=== PATIENT | male | born 1980 | race Caucasian/White ===

== ENCOUNTER 2017-07-24 18:36 | Emergency (ER) | payer OTHER ==
[2017-07-24] MEDS ORDERED: IBUPROFEN 400 MG TABLET (FP) PO ONE (18:47)
--- NOTE | 2017-07-24 18:47 | PDOC ---
Rapid Medical Evaluation Time Seen by Provider: 07/24/17 18:40 Medical Evaluation: 07/24/17 18:40 I have performed a brief in-person evaluation of this patient. 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 No sig pmhx Pertinent physical exam findings:Unremarkable I have ordered the following: xray, motrin The patient will proceed to the ED for further evaluation.
[2017-07-24 18:49] VITALS: BP 130/89; PULSE 100; TEMP 99.1; BMI 36.2
--- NOTE | 2017-07-24 19:13 | PDOC ---
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 Patient climbed up 1 step to look at the water well when he slipped on the ice from the step causing him to twist her his right knee. Patient managed to climb down from the fire truck but twisted his right knee again falling onto his right side. Patient denies any head injuries, neck/back pains, chest pain, abdominal pains, extremity numbness or tingling sensation. Patient states he's ambulating with a slight limp. Patient had a previous right patellar tendon injury and is being treated by an orthopedic surgeon from [facility]/ Dr. Be Ojead. Timing/Duration: 1 hour Past History - Past Medical History Allergies/Adverse Reactions: Allergies Allergy/AdvReac Type Severity Reaction Status Date / Time No Known Allergies Allergy Verified 07/24/17 18:45 Home Medications: Ambulatory Orders NK [No Known Home Medication] 07/24/17 COPD: No - Suicide/Smoking/Psychosocial Hx Smoking History: Never smoked Have you smoked in the past 12 months: No Information on smoking cessation initiated: No Hx Alcohol Use: No Drug/Substance Use Hx: No Substance Use Type: None Review of Systems - Review of Systems Able to Perform ROS?: Yes Comments:: 07/24/17 19:10 CONSTITUTIONAL: Absent: fever, chills, diaphoresis, generalized weakness, malaise, loss of appetite SKIN: Absent: rash, itching, pallor HEMATOLOGIC/IMMUNOLOGIC: Absent: easy bleeding, easy bruising, lymphadenopathy, frequent infections ENDOCRINE: Absent: unexplained weight gain, unexplained weight loss, heat intolerance, cold intolerance Right knee pain Neg ext numbness/tingling sensation Is the patient limited Greenlandic proficient: No *Physical Exam - Vital Signs Last Vital Signs Temp Pulse Resp BP Pulse Ox 99.1 F 100 H 18 130/89 100 07/24/17 18:46 07/24/17 18:46 07/24/17 18:46 07/24/17 18:46 07/24/17 18:46 - Physical Exam Comments: 07/24/17 19:10 GENERAL: Well developed, well nourished. Awake and alert. No acute distress. MUSCULOSKELETAL Normal range of motion at all joints. No bony deformities or tenderness. No CVA tenderness. EXTREMITIES: No cyanosis. No clubbing. No edema. No calf tenderness. SKIN: Warm and dry. Normal capillary refill. No rashes. No jaundice. Right knee F.R.O.M> neg valrus/valgus neg ant/posterior drawer Neg pain on palp Slight swelling Right hip F.R>O.M. neg pain on palp Right ankle 2+dp pulse F.R.O.M. Neg pain on palp Neg obv def ED Treatment Course - RADIOLOGY Radiograph Interpretation: 07/24/17 19:13 XRay Right knee 2v Neg fx/dislocations - Medications Given in the ED: ED Medications Discontinued Medications Generic Name Dose Route Start Last Admin Trade Name Freq PRN Reason Stop Dose Admin Ibuprofen 800 mg 07/24/17 18:47 07/24/17 18:52 Motrin - PO 07/24/17 18:48 800 mg ONCE ONE Administration Medical Decision Making - Medical Decision Making 07/24/17 19:08 36-year-old male without any medical history presents to the emergency department complaining of right knee pain after he slipped off a step of his fire truck causing him to twist and fall onto his lateral knee. Patient is able to ambulate with a slight limp. Knee x-ray does not show any obvious fracture or dislocation. Patient has a previous right knee injury and is being treated by Dr. Be Ojeda of [facility]/orthopedics. *DC/Admit/Observation/Transfer Diagnosis at time of Disposition: Right knee sprain Qualifiers: Encounter type: initial encounter Involved ligament of knee: other ligament Qualified Code(s): S83.8X1A - Sprain of other specified parts of right knee, initial encounter - Discharge Dispostion Disposition: HOME Condition at time of disposition: Stable Admit: No - Referrals Referrals: Be Ojeda [Non Staff, Medical] - - Patient Instructions Printed Discharge Instructions: DI for Knee Sprain Additional Instructions: Ice; 20 mins on alternating with 20 mins off for 48 hours while awake. Rest Elevate Follow up with your orthopedic surgeon or the one listed on the discharge form. Return to the ER for severe/persistent/worsening symptoms, extremity numbness/ tingling sensation. - Post Discharge Activity Forms/Work/School Notes: Back to Work
== END 2017-07-24 19:30 | disposition home or self-care (01) ==
LOC: JERFT 18:36
DX: S83.8X1A Sprain of other specified parts of right knee, initial encounter (principal); W00.1XXA Fall from stairs and steps due to ice and snow, initial encounter; V86.41XA Person injured while boarding or alighting from ambulance or fire engine, initial encounter; Y93.89 Activity, other specified; Y92.29 Other specified public building as the place of occurrence of the external cause; Y99.0 Civilian activity done for income or pay
CPT/HCPCS: 73560-TC-RT; 99281-25

== ENCOUNTER 2020-05-25 16:45 | Emergency (ER) | payer OTHER ==
[2020-05-25 16:53] VITALS: BP 123/71; PULSE 85; TEMP 98.4; BMI 34.8
--- OUTSIDE RECORDS SUMMARY | 2020-05-25 16:56 | XMS ---
:1980 Author Organization [facility] Care Team Providers Name Role Phone Austen Garza Unavailable Unavailable Kari GRINDER SET UP OPERATOR THREAD TOOLOdalys Marquez Unavailable Unavailable Tran, I MD Unavailable Unavailable Tran, I MD Unavailable Unavailable Tran, I MD Unavailable Unavailable Tran, I MD Unavailable Unavailable Tran, I MD Unavailable Unavailable Tran, I MD Unavailable Unavailable Tran, I MD Unavailable Unavailable Tran, I MD Unavailable Unavailable Tran, I MD Unavailable Unavailable Tran, I MD Unavailable Unavailable Tran, I MD Unavailable Unavailable Tran, I MD Unavailable Unavailable Tran, I MD Unavailable Unavailable Tran, I MD Unavailable Unavailable Tran, I MD Unavailable Unavailable Tran, I MD Unavailable Unavailable Sruthi, L Unavailable Unavailable Brodoff Unavailable Unavailable Flam, C Unavailable Unavailable Re-disclosure Warning The records that you are about to access may contain information from federally- assisted alcohol or drug abuse programs. If such information is present, then the following federally mandated warning applies: This information has been disclosed to you from records protected by federal confidentiality rules (42 CFR part 2). The federal rules prohibit you from making any further disclosure of this information unless further disclosure is expressly permitted by the written consent of the person to whom it pertains or as otherwise permitted by 42 CFR part 2. A general authorization for the release of medical or other information is NOT sufficient for this purpose. The Federal rules restrict any use of the information to criminally investigate or prosecute any alcohol or drug abuse patient.The records that you are about to access may contain highly sensitive health information, the redisclosure of which is protected by Article 27-F of the [place] State Public Health law. If you continue you may haveaccess to information: Regarding HIV / AIDS; Provided by facilities licensed or operated by the [facility] Office of Mental Health; or Provided by the [facility] Office for People With Developmental Disabilities. If such information is present, then the following [facility] mandated warning applies: This information has been disclosed to you from confidential records which are protected by state law. State law prohibits you from making any further disclosure of this information without the specific written consent of the person to whom it pertains, or as otherwise permitted by law. Any unauthorized further disclosure in violation of state law may result in a fine or usp sentence or both. A general authorization for the release of medical or other information is NOT sufficient authorization for further disclosure. Allergies and Adverse Reactions Type Description Substance Reaction Status Data Source(s ) 3 NO KNOWN ALLERGIES Clindamycin 150 MG NEXTGEN Oral Tablet ([facility] [Clintabs] [facility]) Drug allergy No Known Medication No Known Medication [facility] - Allergies Allergies [facility] Encounters Encounter Providers Location Date Indications Data Source(s ) Outpatient Attender: Kristofer 04/06/2020 NEXTGEN ( [facility] Tran MD 01:42:00 PM [facility]) Outpatient Attender: Felipe 04/02/2020 NEXTGEN ( [facility] FlamReferrer: Felipe 11:10:00 AM [facility]) Outpatient Attender: Felipe 03/08/2020 NEXTGEN ( [facility] FlamReferrer: Felipe 07:34:00 AM [facility]) Outpatient Attender: Felipe De Leon 01/19/2020 NEXT GEN ([facility] 11:02:00 AM [facility]) Outpatient Attender: Felipe De Leon 01/06/2020 NEXT GEN ([facility] 08:35:00 AM [facility]) Outpatient Attender: Felipe De Leon 01/05/2020 NEXT GEN ([facility] 10:15:00 AM [facility]) Outpatient Attender: Felipe De Leon 11/18/2019 NEXT GEN ([facility] 07:53:00 AM [facility] [place] [facility] Outpatient Attender: Felipe De Leon 10/22/2019 NEXT GEN ([facility] 11:44:00 AM [facility] [place] [facility] Outpatient Attender: Felipe 10/13/2019 NEXTGEN ( [facility] FlamReferrer: Felipe 11:00:00 AM [facility] [place] [facility]) Outpatient Attender: Kristofer 09/23/2019 NEXTGEN ( Ady Tran MD 02:20:00 PM [facility] [place] [facility]) Outpatient Attender: Nick 09/20/2019 NEXTGEN ([facility] Saulo 11:10:00 AM [facility] [place] [facility]) Outpatient Attender: Nick 09/20/2019 NEXTGEN ([facility] DeonnaffReferrer: 12:00:00 AM [facility] [place] [facility]er Tran [facility]) Outpatient Attender: Kristofer 09/11/2019 NEXTGEN ( [facility] Marc MDReferrer: 11:30:00 AM [facility]ica [facility] [place] [facility]er Tran [facility]) Outpatient Attender: Austen 09/05/2019 KIRKGEN ([facility] PapellReferrer: 12:00:00 AM [facility] [place] [facility] Outpatient Attender: Felipe De Leon 08/27/2019 NEXT GEN ([facility] 12:06:00 PM [facility] [place] [facility]) Outpatient Attender: Kristofer 07/30/2019 KIRKGEN ( Ady Tran MD 09:40:00 AM [facility] [place] [facility]) Outpatient Attender: Felipe De Leon 07/22/2019 NEXT GEN ([facility] 11:37:00 AM [facility] [place] [facility]) Outpatient Attender: Felipe 07/18/2019 NEXTGEN ( [facility] FlamReferrer: Felipe 08:30:00 AM [facility] [place] [facility]) Outpatient Attender: Kristofer 07/15/2019 NEXTGEN ( [facility] Marc MDReferrer: 10:00:00 AM [facility] [place] [facility]er Tran MD [facility]) Outpatient Attender: Maria Esther 06/24/2019 [facility] 12:56:52 PM Tiffanieernie Bolanos FNPAdmitter: Maria Esther BERG - [facility] 06/24/2019 11:59:00 PM EST Patient discharged. Outpatient Attender: Kristofer Tran 06/24/2019 12:00:00 AM NEXTGEN ([facility] EST [facility] ) Outpatient Attender: Felipe De Leon 06/24/2019 12:00:00 AM NEXTGEN ([facility] EST [facility] Outpatient Attender: Felipe De Leon 06/24/2019 12:00:00 AM NEXTGEN ([facility] EST [facility]) Outpatient Attender: Felipe 06/06/2019 03:27:00 PM NEXTGEN ([facility] FlamAttender: Jessica BERG M edical - [facility] ) Outpatient Attender: Felipe 06/04/2019 01:30:00 PM NEXTGEN ([facility] FlsukumarReferrer: Felipe BERG Medic al - [facility] ) Outpatient Attender: Felipe De Leon 04/30/2019 10:10:00 AM NEXTGEN ([facility] EDT [facility] ) Medications Medication Brand Start Product Dose Route Administrative Pharmacy [facility] Indications Reaction Description Data Name Date Form Instructions Instructions Source(s) rivaroxaban XARELT TAKE 1 TABLET RP NEXTGEN 20 MG Oral O 2020 BY MOUTH EVERY ([facility] Tablet 12:00: DAY EVENING Medi vincenzo - [Xarelto] 00 AM MEAL [place] 20 mg 20 mg [facility] ) This may be an active medication. No end date is available. Metoprolol METOPROLOL 03/08/2020 take 1 RP NEXTGEN Tartrate 50 MG TARTRATE 12:00:00 AM tablet by ([facility] Oral Tablet 50 EDT oral route Medical - [place] mg 50 mg 3 times [place] [facility] every [facility]) with meals This may be an active medication. No end date is available. atorvastatin 40 ATORVASTATIN 01/19/2020 take 1 RP NEXTGEN MG Oral Tablet CALCIUM 12:00:00 AM tablet by ([facility] 40 mg 40 mg EDT oral route Me dical - [place] every day [place] [facility]) This may be an active medication. No end date is available. rivaroxaban 20 MG XARELTO 01/06/2020 TAKE 1 RP NEXTGEN Oral Tablet 12:00:00 AM EDT TABLET BY ([facility] [Xarelto] 20 mg MOUTH EVERY Medical - [facility] 20 mg DAY EVENING [place] [facility]) This may be an active medication. No end date is available. pantoprazole 20 PANTOPRAZOLE 01/06/2020 TAKE 1 RP NEXTGEN MG Delayed SODIUM 12:00:00 AM TABLET BY ([facility] Release Oral EDT MOUTH Medica l - [facility] Tablet 20 mg 20 EVERY DAY [place] [facility]) This may be an active medication. No end date is available. Metoprolol METOPROLOL 11/18/2019 TAKE 1 RP NEXTGEN Tartrate 50 MG TARTRATE 12:00:00 AM TABLET BY ([facility] Oral Tablet 50 EDT MOUTH 3 Me dical - [place] mg 50 mg TIMES [place] [facility] EVERY DAY [facility]) WITH MEALS This may be an active medication. No end date is available. Metoprolol METOPROLOL 08/27/2019 take 1 RP NEXTGEN Tartrate 50 MG TARTRATE 12:00:00 AM tablet by ([facility] Oral Tablet 50 EST oral route Medical - [facility] mg 50 mg 3 times [place] [facility] every day [facility]) with meals This may be an active medication. No end date is available. atorvastatin 40 ATORVASTATIN 07/18/2019 take 1 RP NEXTGEN MG Oral Tablet CALCIUM 12:00:00 AM tablet by ([facility] 40 mg 40 mg EST oral route Me dical - [facility] every day [place] [facility]) This may be an active medication. No end date is available. pantoprazole 20 PANTOPRAZOLE 07/18/2019 take 1 RP NEXTGEN MG Delayed SODIUM 12:00:00 AM tablet by ([facility] Release Oral EST oral Medical - [facility] Tablet 20 mg 20 route [facility] mg every day [facility]) This may be an active medication. No end date is available. rivaroxaban 20 MG XARELTO 07/18/2019 take 1 RP NEXTGEN Oral Tablet 12:00:00 AM EST tablet by ([facility] [Xarelto] [address] [facility] 20 mg every day [facility] with the Group [facility]) evening meal This may be an active medication. No end date is available. Insurance Providers Payer name Policy type Policy ID Covered Covered constitution party's Policy P moshe / Coverage constitution party ID relationship to Borrego Inf ormation type borrego PMA Management [id number] SP [id number] Vic [place] [id number] Plan [facility] UMR Risk [id number] 1 [id number] Management [facility] [id number] DAGMAR MED.CONT.UNIT Problems, Conditions, and Diagnoses Code Display Name Description Problem Type Effective Data Dates Source(s) D64.9 Anemia, unspecified Anemia, unspecified Diagnosis NEXTGEN type 11:00:00 AM ([facility]) I10 Essential (primary) Essential (primary) Diagnosis NEXTGEN hypertension hypertension 11:00:00 [facility] 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) Current use of long Diagnosis NEXTGEN use of term 11:00:00 AM ([facility] anticoagulants anticoagulation EDT Medic al [facility]) I82.401 Acute embolism and Acute embolism and Diagnosis 0 NEXTGEN thrombosis of thomb[place] unsp deep 12:00:00 AM ([facility] unspecified deep veins of r low EST [facility] [place] veins of right extrem [facility]) I26.99 Other pulmonary Other pulmonary Diagnosis 09/20/2019 NEXT GEN embolism without embolism without 12:00:00 AM ( [facility] acute cor pulmonale acute cor pulmonale [facility]) Z86.711 Personal history of History of Diagnosis 09/11/2019 NEXTG EN pulmonary embolism pulmonary embolus 11:30:00 A M ([facility] (PE) EST [facility]) Z00.00 Encounter for Encounter for Diagnosis 06/04/2019 NEXTGEN general adult preventive care 01:30:00 PM ([facility] medical examination EST Medic al - [place] without abnormal [place] [facility] findings [facility]) Surgeries/Procedures Procedure Description Date Indications Data Source(s) IIV4 VACC NO PRSV 0.5 IIV4 VACC NO PRSV 0.5 04/02/2020 NEXTGEN ([facility] ML IM ML IM 12:00:[address] [facility] [place] [facility]) IMMUNIZATION ADMIN IMMUNIZATION ADMIN 04/02/2020 NEX TGEN ([facility]:00:[facility] OFFICE/OUTPATIENT OFFICE/OUTPATIENT 10/13/2019 NEXTG EN ([facility] VISIT EST VISIT EST 12:00:00 AM [facility] OFFICE/OUTPATIENT OFFICE/OUTPATIENT 09/11/2019 NEXTG EN ([facility] VISIT EST VISIT EST 12:00:[address] [facility] [employer] sco EST Medical Group P C) ROUTINE VENIPUNCTURE ROUTINE VENIPUNCTURE 07/15/2019 NEXTGEN ([facility] 12:00:00 AM [facility] - [place] [facility] sco EST [facility] C) OFFICE/OUTPATIENT OFFICE/OUTPATIENT 07/15/2019 NEXTG EN ([facility] VISIT NEW VISIT NEW 12:00:[address] [facility] [place] [facility] sco EST Medical Group P C) PREV VISIT EST AGE PREV VISIT EST AGE 896/04/2019 NEX TGEN ([facility] 40-64 40-64 12:00:[address] [facility] [place] [employer] tno EST Medical Group P C) Results ID Date Data Source [id number] 06/24/2019 01:59:00 PM EST [facility] Patient Name: ABDIRAHMAN LESTERN: Hernan [id number] UltrasoundACCESSION E XAM DATE/TIME PROCEDURE ORDERING PROVIDER [id number] 06/24/2019 13:36 EST US Venous Doppler Kari MORRISON, Modified Lower Ext RT Maria Esther MorrowReason For Exam(US Venous Doppler Lower Ext RT) RO DVTAddendumADDENDUMWet reading /critical value called to Maria Esther MORRISON on 06/24/2019 at 2:06 PM. Final Dictated: Piotr Underwood MD 06/24/19 14:05Signed: Ivett Underwood MD 06/24/19 14:07Transcribed by: CaraortPROCEDURE: Ultrasound Duplex S can of Lower Extremity Veins RightCLINICAL HISTORY: Right Calf Pain and Swelling f or 3 Weeks. Personal History of Deep Vein Thrombosis Left Leg. Patient has Inferio r Vena Cava Filter and is Not Currently on Blood thinners.SCRIPT INFORMATION: VENOU S DOPPLER OF RIGHT LOWER EXTREMITY. DX: L82.402.COMPARISON: Bilateral lower int ravenous Doppler 06/12/2018TECHNIQUE:Ultrasound evaluatio n two-dimensional imaging with graded compression and Doppler analysis and col or flow Doppler imaging was performed on the deep veins of the right lower extremity to include the common femoral (including saphenofemoral junction), femoral, popli teal, and calf veins.FINDINGS:Noncompressible filling defects within the right posteri or tibial and peroneal veins compatible with deep venous thrombus.IMPRESSION:Acute be low the knee deep venous thrombus.Thank you for allowing us to participate in the ev aluation of this patient. Final Dictated: Piotr Underwood MD 1 08/25/18 13:50Signed: Piotr Underwood MD 06/24/19 13:59Transcribed by: Aj grey last revised on 06/24/2019 14:07 EST by Piotr Underwood MD Name Value Range Interpretation Code Description Data Bhavana rce(s) Supporting Document(s ) Procedure
--- NOTE | 2020-05-25 17:17 | PDOC ---
History of Present Illness - General Chief Complaint: Back Pain Stated Complaint: BACK PAIN Time Seen by Provider: 05/25/20 17:10 - History of Present Illness Initial Comments: 05/25/20 17:15 39-year-old male with a past medical history of pulmonary emboli on Xarelto hypertension chronic pain on oxycodone also takes Flexeril presents for evaluation of lower back pain no radicular symptoms. 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 No loss of bowel bladder function saddle paresthesias systemic or radicular symptoms. Past History - Medical History Allergies/Adverse Reactions: Allergies Allergy/AdvReac Type Severity Reaction Status Date / Time No Known Allergies Allergy Verified 05/25/20 16:47 Home Medications: Ambulatory Orders Cyclobenzaprine HCl 10 mg PO Q8H PRN #14 tablet 01/20/18 Naproxen [Naprosyn -] 500 mg PO TID #30 tablet 01/20/18 Tramadol HCl 50 mg PO Q6H #20 tablet MDD 200 mg 01/21/18 COPD: No - Psycho-Social/Smoking History Smoking History: Never smoked Have you smoked in the past 12 months: No - Substance Abuse Hx (Audit-C & DAST Scrn) How often the patient has a drink containing alcohol: Monthly or less Number of drinks the patient has on a typical day: 3 or 4 How often the patient has six or more drinks on one occasion: Never Score: In Men: 4 or > Positive; In Women: 3 or > Positive: 2 Screen Result (Pos requires Nsg. Audit-10AR): Negative In the last yr the pt used illegal drug/Rx for NonMed reason: No Score: Yes response is considered Positive: 0 Screen Result (Positive result requires Nsg. DAST-10): Negative Review of Systems - Review of Systems Musculoskeletal: Yes: Back Pain *Physical Exam - Vital Signs Last Vital Signs Temp Pulse Resp BP Pulse Ox 98.4 F 85 18 123/71 99 05/25/20 16:47 05/25/20 16:47 05/25/20 16:47 05/25/20 16:47 05/25/20 16:47 - Physical Exam 05/25/20 17:16 Lumbar spine skin color temperature normal range of motion is slightly decreased. No midline tenderness. Moderate bilateral paralumbar musculature spasm and tenderness 5 out of 5 strength bilateral lower extremities without gross sensorimotor deficits thighs and calves are soft and nontender neurovascular intact Medical Decision Making - Medical Decision Making 05/25/20 17:16 Patient needs the visit document that he has a spine surgeon follow-up within [facility]. He has pain medication as well as anti-inflammatories at home he will follow-up accordingly. I have reviewed the pathophysiology with the patient. They are in agreement with the treatment plan all questions were answered to their satisfaction. Understanding for follow-up without fail was also conveyed to the patient. Again they are in agreement. Discharge - Discharge Information Problems reviewed: Yes Clinical Impression/Diagnosis: Low back strain Condition: Stable Disposition: HOME - Admission No - Follow up/Referral Referrals: Felipe De Leon MD [Primary Care Provider] - - Patient Discharge Instructions Additional Instructions: Continue regular medication as directed and return to the emergency room for further issues. Without fail follow-up with your spine surgeon in 1 to 2 days for further evaluation and treatment options. - Post Discharge Activity Work/Back to School Note: Back to School
== END 2020-05-25 17:20 | disposition home or self-care (01) ==
LOC: JER 16:45 → JERFT 16:45
DX: S39.012A Strain of muscle, fascia and tendon of lower back, initial encounter (principal)
CPT/HCPCS: 99282-25

== ENCOUNTER 2022-01-14 10:32 | Emergency (ER) | payer BC ==
[2022-01-14] MEDS ORDERED: KETOROLAC TROMETHAMINE 60 MG/2 ML VIAL IM ONE (10:44)
[2022-01-14] MEDS ORDERED: METHOCARBAMOL 500 MG TABLET PO ONE (10:44)
[2022-01-14 10:51] VITALS: BP 145/97; PULSE 99; TEMP 98.4; BMI 39.0
[2022-01-14] MEDS ORDERED: METHOCARBAMOL 500 MG TABLET ONE (11:08)
[2022-01-14] MEDS ORDERED: KETOROLAC TROMETHAMINE 60 MG/2 ML VIAL ONE (11:08)
== END 2022-01-14 12:15 | disposition home or self-care (01) ==
LOC: JER 10:32 → JERFT 10:32
PROC: 3E0233Z Introduction of Anti-inflammatory into Muscle, Percutaneous Approach (ICD-10-PCS; principal; 2022-01-14)
DX: S39.012A Strain of muscle, fascia and tendon of lower back, initial encounter (principal); W10.9XXA Fall (on) (from) unspecified stairs and steps, initial encounter
CPT/HCPCS: 72100-TC-FY; 99284-25